=== PATIENT | female | born 1945 | race Caucasian/White ===

== ENCOUNTER 2017-03-07 20:12 | Emergency (ER) | payer BC, MEDICARE ==
[~2017-03-07] VITALS: Ht 165.1 cm; Wt 85.7 kg
[~2017-03-07 20:12] MED LIST: ALPR1TAB2 PO; LISI-334 PO
[2017-03-07 20:39] LABS: BASO # 0.1 x10^3/uL (0.0-0.2); BASO % 1 % (0-3); EOS % 0 % (0-3); HEMATOCRIT 36.7 % (36.0-47.0); HEMOGLOBIN 12.4 g/dL (12.0-15.5); LYMPH # 2.6 x10^3/uL (1.0-4.8); LYMPH % 24 % (24-48); MEAN CORPUSCULAR HEMOGLOBIN 33 pg (25-35); MEAN CORPUSCULAR HGB CONC 34 g/dL (31-37); MEAN CORPUSCULAR VOLUME 98 fL (79-100); MONO % 9 % (0-9); NEUT % 66 % (31-73); PLATELET COUNT 285 x10^3/uL (140-400); RED BLOOD COUNT 3.73 x10^6/uL (3.50-5.40); WHITE BLOOD COUNT 10.8 x10^3/uL (4.0-11.0)
[2017-03-07 20:51] LABS: CALCIUM 9.3 mg/dL (8.5-10.1); CREATININE 0.9 mg/dL (0.6-1.0); GFR 62.1; POTASSIUM 3.4 mmol/L (3.5-5.1)
[2017-03-07 20:57] LABS: ALBUMIN/GLOBULIN RATIO 1.1 (1.0-1.7); TOTAL BILIRUBIN 0.5 mg/dL (0.2-1.0); TOTAL PROTEIN 7.8 g/dL (6.4-8.2)
[2017-03-07] MEDS ORDERED: MULTIVIT INFUSN,ADULT 4,VIT K 10 ML, FOLIC ACID 1 MG, THIAMINE 100 MG in IV RINGERS,LAC... IV ONE (21:00)
--- NOTE | 2017-03-07 21:08 | RAD ---
CT HEAD INDICATION: right side numbness COMPARISON: None Available. TECHNIQUE: 5 mm contiguous axial images were obtained from the skull base to the vertex . Exposure: One or more of the following individualized dose reduction techniques were utilized for this examination: 1. Automated exposure control 2. Adjustment of the mA and/or kV according to patient size 3. Use of iterative reconstruction technique FINDINGS: Mild bilateral periventricular white matter hypodensities likely chronic small vessel ischemic disease. No evidence of acute intracranial hemorrhage. No extra-axial fluid collections. No mass effect or midline shift. Ventricular size is appropriate. Basal cisterns are patent. No fractures identified.Neal-white differentiation is preserved.Globes and orbits are within normal limits. Paranasal sinuses and mastoid air cells are clear. IMPRESSION: No acute intracranial findings. Electronically signed by: Ronnell Britton MD (03/07/2017 9:05 PM) [facility]
--- NOTE | 2017-03-07 21:25 | PHYS DOC ---
Past Medical History Past Medical History: Anxiety, Depression, Fibromyalgia, High Cholesterol, Hypertension Additional Past Medical Histor: RA, ALCOHOL DEPENDENCY, XANAX DEPENDENCY, NEUROPATHY Past Surgical History: Cholecystectomy, Other Additional Past Surgical Histo: BACK, NECK, LEFT SHOULDER, Alcohol Use: Sober Drug Use: Benzodiazepine Social History Narrative: STOPPED DRINKING AND TAKING XANAX ON 03/03/17 Adult General Chief Complaint Chief Complaint: WEAKNESS/GENERALIZED HPI HPI Patient is a 71 year old female with history of alcohol dependency, Xanax dependency, fibromyalgia rheumatoid arthritis who presents with feelings of uneasiness, generalized muscle aches, nausea and nervousness. Patient also complains of tingling in her toes. History of neuropathy. Patient was admitted to [facility] for inpatient detox 5 days ago and was released last evening. She denies chest pain, chest tightness, hallucinations and delusions. Patient has not drank alcohol or taken Xanax since discharge. She was prescribed hydroxyzine she has not taken. She denies nausea vomiting, pain. No other acute symptoms or complaints. Patient's accompanied by her son who assist with a history. Review of Systems Review of Systems Review symptoms as per history of present illness. All other review symptoms are negative. Current Medications Current Medications Current Medications Medications (Trade) Dose Ordered Sig/Leatha Start Time Stop Time Status Last Admin Dose Admin Chlordiazepoxide (Librium) 25 mg 1X ONCE 03/07/17 23:15 03/07/17 23:16 DC 03/07/17 23:13 25 MG Hydroxyzine Pamoate (Vistaril) 50 mg 1X ONCE 03/07/17 21:30 03/07/17 21:31 DC 03/07/17 21:34 50 MG Multivitamins 10 ml/Folic Acid 1 mg/Thiamine HCl 100 mg/Ringer's Solution 1,011.2 ml @ 1,000 mls/ hr 1X ONCE 03/07/17 21:00 03/07/17 22:00 DC 03/07/17 21:35 1,000 MLS/HR Allergies Allergies Allergies Coded Allergies Type Severity Reaction Last Updated Verified No Known Drug Allergies 09/27/14 No Physical Exam Physical Exam Constitutional: Well developed, well nourished, anxious appearing,. [] HENT: Normocephalic, atraumatic, bilateral external ears normal, oropharynx moist, no oral exudates, nose normal. [] Eyes: PERRLA, EOMI, conjunctiva normal, no discharge. [] Neck: Normal range of motion, no tenderness, supple, no stridor. [] Cardiovascular:Heart rate regular rhythm, no murmur [] Lungs & Thorax: Bilateral breath sounds clear to auscultation [] Abdomen: Bowel sounds normal, soft, no tenderness, no masses, no pulsatile masses. [] Skin: Warm, dry, no erythema, no rash. [] Back: No tenderness, no CVA tenderness. [] Extremities: No tenderness, no cyanosis, no clubbing, ROM intact, no edema. [] Neurologic: Alert and oriented X 3, radial nerves II through XII grossly intact , normal motor function, normal sensory function, no focal deficits noted. [] Psychologic: Affect, anxious.. [] Current Patient Data Vital Signs Vital Signs Date Time Temp Pulse Resp B/P (MAP) Pulse Ox O2 Delivery O2 Flow Rate FiO2 03/07/17 23:14 70 174/79 (110) 98 Room Air 03/07/17 20:20 98.7 20 98.7 Lab Values Laboratory Tests Test 03/07/17 20:21 03/07/17 20:24 03/07/17 21:30 Glucose (Fingerstick) 163 mg/dL (70-99) H White Blood Count 10.8 x10^3/uL (4.0-11.0) Red Blood Count 3.73 x10^6/uL (3.50-5.40) Hemoglobin 12.4 g/dL (12.0-15.5) Hematocrit 36.7 % (36.0-47.0) Mean Corpuscular Volume 98 fL (79-100) Mean Corpuscular Hemoglobin 33 pg (25-35) Mean Corpuscular Hemoglobin Concent 34 g/dL (31-37) Red Cell Distribution Width 14.0 % (11.5-14.5) Platelet Count 285 x10^3/uL (140-400) Neutrophils (%) (Auto) 66 % (31-73) Lymphocytes (%) (Auto) 24 % (24-48) Monocytes (%) (Auto) 9 % (0-9) Eosinophils (%) (Auto) 0 % (0-3) Basophils (%) (Auto) 1 % (0-3) Neutrophils # (Auto) 7.1 x10^3uL (1.8-7.7) Lymphocytes # (Auto) 2.6 x10^3/uL (1.0-4.8) Monocytes # (Auto) 0.9 x10^3/uL (0.0-1.1) Eosinophils # (Auto) 0.0 x10^3/uL (0.0-0.7) Basophils # (Auto) 0.1 x10^3/uL (0.0-0.2) Sodium Level 135 mmol/L (136-145) L Potassium Level 3.4 mmol/L (3.5-5.1) L Chloride Level 97 mmol/L (98-107) L Carbon Dioxide Level 26 mmol/L (21-32) Anion Gap 12 (6-14) Blood Urea Nitrogen 13 mg/dL (7-20) Creatinine 0.9 mg/dL (0.6-1.0) Estimated GFR (Cockcroft-Gault) 62.1 BUN/Creatinine Ratio 14 (6-20) Glucose Level 166 mg/dL (70-99) H Calcium Level 9.3 mg/dL (8.5-10.1) Magnesium Level 2.0 mg/dL (1.8-2.4) Total Bilirubin 0.5 mg/dL (0.2-1.0) Aspartate Amino Transferase (AST) 31 U/L (15-37) Alanine Aminotransferase (ALT) 63 U/L (14-59) H Alkaline Phosphatase 47 U/L (46-116) Troponin I Quantitative < 0.017 ng/mL (0.000-0.055) Total Protein 7.8 g/dL (6.4-8.2) Albumin 4.0 g/dL (3.4-5.0) Albumin/Globulin Ratio 1.1 (1.0-1.7) Thyroid Stimulating Hormone (TSH) 2.661 uIU/mL (0.358-3.74) Ethyl Alcohol Level < 10 mg/dL (0-10) Urine Collection Type Unknown Urine Color Yellow Urine Clarity Clear Urine pH 6.0 Urine Specific [place] 1.015 Urine Protein Negative mg/dL (NEG-TRACE) Urine Glucose (UA) Negative mg/dL (NEG) Urine Ketones (Stick) Negative mg/dL (NEG) Urine Blood Negative (NEG) Urine Nitrite Negative (NEG) Urine Bilirubin Negative (NEG) Urine Urobilinogen Dipstick 0.2 mg/dL (0.2 mg/dL) Urine Leukocyte Esterase Moderate (NEG) Urine RBC 0 /HPF (0-2) Urine WBC 5-10 /HPF (0-4) Urine Squamous Epithelial Cells Mod /LPF Urine Transitional Epithelial Cells Mod /LPF Urine Renal Epithelial Cells Occ /LPF Urine Bacteria 0 /HPF (0-FEW) Urine Hyaline Casts Occasional /HPF Urine Mucus Marked /LPF Urine Opiates Screen Neg (NEG) Urine Methadone Screen Neg (NEG) Urine Barbiturates Neg (NEG) Urine Phencyclidine Screen Neg (NEG) Urine Amphetamine/Methamphetamine Neg (NEG) Urine Benzodiazepines Screen Pos (NEG) Urine Cocaine Screen Neg (NEG) Urine Cannabinoids Screen Neg (NEG) Urine Ethyl Alcohol Neg (NEG) Laboratory Tests 03/07/17 20:24 Laboratory Tests 03/07/17 20:24 EKG EKG [EKG: Normal sinus rhythm, right ventricular hypertrophy, ventricular rate 73, no acute ST-T wave changes, QTC 427. Interpretation by this physician.] Radiology/Procedures Radiology/Procedures [CT head: No acute intracranial disease per radiology report] Course & Med Decision Making Course & Med Decision Making Pertinent Labs and Imaging studies reviewed. (See chart for details) [Patient given banana bag and Atarax for anxiety. Patient blood labs, EKG and imaging studies checked nonacute symptoms are consistent with anxiety. Patient has 5 days chest pain is not exhibited symptoms of delirium. However, patient symptomatically for anxiety and hypertensive consistent withdrawal. Librium given with significant improvement. I discussed with the patient and patient's son at length multiple options including admission to this facility, transfer to [facility], or discharge home with a prescription of Librium with outpatient rehabilitation. Patient and patient's son request discharge home with a prescription of Librium. I instructed them that should Renetta develop new or worsening symptoms, they should return immediately to the emergency department. Both patient and son verbalized understanding agreement with discharge plan. Dragon Disclaimer Dragon Disclaimer This electronic medical record was generated, in whole or in part, using a voice recognition dictation system. Departure Departure Impression: Primary Impression: Anxiety reaction Additional Impressions: Withdrawal from benzodiazepine Withdrawal symptoms, alcohol Disposition: 01 HOME, SELF-CARE Condition: IMPROVED Referrals: SHAYNA MABRY MD (PCP) Patient Instructions: Alcohol Withdrawal, [id number], Anxiety and Panic Attacks, [id number], Benzodiazepine Withdrawal Additional Instructions: Please follow discharge instructions provided to yesterday. Take Librium as needed for anxiety and follow-up with outpatient rehabilitation. Problem Qualifiers LYLE MALAGON DO Mar 07, 2017 21:25
[2017-03-07] MEDS ORDERED: hydrOXYzine PAMOATE 25 MG CAPSULE PO ONE (21:30)
[2017-03-07 21:53] LABS: BILIRUBIN,URINE NEGATIVE (NEG); GLUCOSE,URINE NEGATIVE (NEG); NITRITE,URINE NEGATIVE (NEG); PROTEIN,URINE NEGATIVE (NEG-TRACE); UROBILINOGEN,URINE 0.2 mg/dL (0.2 mg/dL)
[2017-03-07 22:00] LABS: BARBITURATES NEG (NEG); BENZODIAZEPINES POS (NEG); CANNABINOIDS NEG (NEG); COCAINE NEG (NEG); METHADONE NEG (NEG); OPIATES NEG (NEG); PHENCYCLIDINE NEG (NEG)
[2017-03-07 22:11] LABS: BACTERIA,URINE 0 /HPF (0-FEW); RBC,URINE 0 /HPF (0-2); SQUAMOUS EPITHELIAL CELL,UR MOD /LPF
[2017-03-07] MEDS ORDERED: chlordiazePOXIDE HCL 25 MG CAPSULE PO ONE (23:15)
[2017-03-08 00:41] VITALS: BP 168/74
--- NOTE | 2017-03-08 11:04 | EKG ---
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
== END 2017-03-08 00:52 | disposition home or self-care (01) ==
LOC: ER 20:42
DX: F41.1 Generalized anxiety disorder (principal); F13.239 Sedative, hypnotic or anxiolytic dependence with withdrawal, unspecified; F10.239 Alcohol dependence with withdrawal, unspecified; F32.9 Major depressive disorder, single episode, unspecified; M79.7 Fibromyalgia; E78.00 Pure hypercholesterolemia, unspecified; I10 Essential (primary) hypertension; M06.9 Rheumatoid arthritis, unspecified; G62.9 Polyneuropathy, unspecified; Z90.49 Acquired absence of other specified parts of digestive tract; Y90.0 Blood alcohol level of less than 20 mg/100 ml
CPT/HCPCS: 36415; 70450; 80053; 80307; 81001; 82962; 83735; 84443; 84484; 85025; 87086; 93005; 96365; 99285; G0480; Q0177; J7120; G0479

== ENCOUNTER → 2021-07-26 | Outpatient (CLI) | payer BC ==
[~2021-07-26] MED LIST changes: -LISI-334 PO; +LISI20TA18 PO; +REGADENOSON 0.4 MG/5 ML DISP.SYRIN. IV ONE
--- NOTE | 2021-07-26 12:30 | CARD ---
MR#: [id number] Date of Study: 07/26/2021 Ordering Physician: KAYLEE GOODMAN, Referring Physician: KAYLEE GOODMAN Tech: Damaris Diaz [facility] APPROVED REPORT EXAM: Two-dimensional and M-mode echocardiogram with Doppler and color Doppler. Other Information Quality : GoodHR: 58bpm Rhythm : NSR INDICATION Chest Pain RISK FACTORS Hypertension Obesity 2D DIMENSIONS RVDd3.2 (2.9-3.5cm)Left Atrium(2D)3.6 (1.6-4.0cm) IVSd1.1 (0.7-1.1cm)Aortic Root(2D)3.3 (2.0-3.7cm) LVDd4.2 (3.9-5.9cm)LVOT Diameter2.2 (1.8-2.4cm) PWd1.0 (0.7-1.1cm)LVDs2.3 (2.5-4.0cm) FS (%) 43.8 %SV58.5 ml Aortic Valve AoV Peak Arnol.141.0cm/sAoV VTI28.4cm AO Peak GR.8.0mmHgLVOT Peak Arnol.113.0cm/s AO Mean GR.3mmHgAVA (VMAX)3.11cm2 Mitral Valve MV E Yvmurmzo10.7cm/sMV DECEL [id number] MV A Wudotdoo81.8cm/sE/A Ratio1.0 Pulmonary Valve PV Peak Yvjnxlai371.7cm/s LEFT VENTRICLE The left ventricle is normal size. There is borderline concentric left ventricular hypertrophy. The l eft ventricular systolic function is normal and the ejection fraction is within normal range. LV eje ction fraction of 55 to 60%. There is normal LV segmental wall motion. The left ventricular diastolic function and filling is normal for age. RIGHT VENTRICLE The right ventricle is normal size. There is normal right ventricular wall thickness. The right ventr icular systolic function is normal. ATRIA The left atrium size is normal. The right atrium size is normal. The interatrial septum is intact wit h no evidence for an atrial septal defect or patent foramen ovale as noted on 2-D or Doppler imaging. AORTIC VALVE The aortic valve is normal in structure and function. Doppler and Color Flow revealed no significant aortic regurgitation. There is no significant aortic valvular stenosis. MITRAL VALVE The mitral valve is normal in structure and function. There is no evidence of mitral valve prolapse. There is no mitral valve stenosis. Doppler and Color Flow revealed no mitral valve regurgitation note d. TRICUSPID VALVE The tricuspid valve is normal in structure and function. Doppler and Color Flow revealed no tricuspid valve regurgitation noted. There is no tricuspid valve stenosis. PULMONIC VALVE The pulmonary valve is normal in structure and function. Doppler and Color Flow revealed no pulmonic valvular regurgitation. GREAT VESSELS The aortic root is normal in size. The ascending aorta is normal in size. The IVC is normal in size a nd collapses >50% with inspiration. PERICARDIAL EFFUSION There is no evidence of significant pericardial effusion. Critical Notification Critical Value: No <Conclusion> The left ventricle is normal size. The left ventricular systolic function is normal and the ejection fraction is within normal range. LV ejection fraction of 55 to 60%. There is normal LV segmental wall motion. There is borderline concentric left ventricular hypertrophy. Doppler and Color Flow revealed no significant aortic regurgitation. There is no significant aortic valvular stenosis. Doppler and Color Flow revealed no mitral valve regurgitation noted. Doppler and Color Flow revealed no tricuspid valve regurgitation noted. Signed by : Jay Raphael MD Electronically Approved : 07/26/2021 12:29:47
--- NOTE | 2021-07-26 12:58 | RAD ---
MR#: [id number] Date of Study: 07/26/2021 Ordering Physician: KAYLEE GOODMAN, Referring Physician: EDE JOHN Tech: RT Junito Franco) (N) APPROVED REPORT Test Type: Pharmacological Stress Nurse/Tech: Scarlett Huertas RN Test Indications: Dyspnea on exertion Cardiac History: Hypertension, Family history Medications: See Electronic Medical Record Medical History: See Electronic Medical Record Resting ECG: SR with PAC Resting Heart Rate: 68 bpm Resting Blood Pressure: 145/71mmHg Pretest Chest Pain: No chest pain Nurse/Tech Notes S1,S2 and lungs clear to auscultation. Consent: The procedure was explained to the patient in lay terms. Informed consent was witnessed. Tyson eout was entered into [employer]. History and Stress Test performed by RT Junito Avila) (N) Pharm. Details Pharmacologic stress testing was performed using 0.4mg per 5ml of regadenoson given intravenously ove r 7-10 seconds. Stress Symptoms No chest pain or symptoms. POST EXERCISE Reason for Termination: Infusion complete Target HR: No Max HR: 88 bpm 70% of Maximum Predicted HR: 124 bpm Max Blood Pressure: 159/56mmHg Blood Pressure response to exercise: Normal blood pressure response during stress. Heart Rate response to exercise: WNL Chest Pain: No. Arrhythmia: Yes. PAC ST Change: No. INTERPRETATION Stress EKG Conclusion: The resting EKG shows a sinus rhythm, mild nonspecific T wave changes and PACs . The stress EKG shows no significant changes from baseline. No EKG evidence of stress-induced ischemia. Imaging Protocol IMAGE PROTOCOL: Stress Tc-99m/rest Tc-99m 1 day Rest: Stress: Viability: Radiopharm.Tc99m NbueadvdiIg87e Sestamibi Dose10.5mCi 33mCi Duration 13min. 13min. Img Date 07/26/2021 07/26/2021 Inj-Img Jufr79msv. 60min. Rest Admin Site:IV - Right AntecubitalAdministrator:RT Austin (R)(N) Stress Admin Site: IV - Right AntecubitalAdministrator: Inderjit Bullis, SHAKE [employer]ER STRESS DATA End Diast. Vol.58.0mlLVEDV index BSA29.0ml End Syst. Vol.10.0mlLVESV index BSA5.0ml Myocardial Mass98.0gEject. Dajevyxb40.0% Stress Scores Regional WT0.00Summed WT0.00 Regional WM0.00Summed WM0.00 LV Perfusion The stress scans showed no significant defects. The rest scans showed no significant defects. Nuclear imaging shows no reversible ischemia or infarct. Wall Motion LV systolic function is normal with an ejection fraction of greater than 70%. LV Perf. Quant 17 Seg. SSS0.00 17 Seg. SRS0.00 17 Seg. SDS0.00 Stress Defect Extent (% LAD)0.00Rest Defect Extent (% LAD)0.00Rev. Defect Extent (% LAD)0.00 Stress Defect Extent (% LCX) 0.00Rest Defect Extent (% LCX)7.50Rev. Defect Extent (% LCX)0.00 Stress Defect Extent (% RCA)0.00Rest Defect Extent (% RCA)0.00Rev. Defect Extent (% RCA)0.00 Stress Defect Extent (% SAMEER)0.00Rest Defect Extent (% SAMEER)1.30Rev. Defect Extent (% SAMEER)0.00 Conclusion 1. No EKG evidence of stress-induced ischemia. 2. Nuclear imaging shows no reversible ischemia or infarct. 3. Normal left ventricular systolic function with an ejection fraction of greater than 70%. 4. Low risk Lexiscan nuclear stress test. Signed by : Jay Raphael MD Electronically Approved : 07/26/2021 12:58:19
== END ==
LOC: NM 08:31
PROVIDERS: ATTEND Internal Medicine Cardiovascular Disease
DX: I11.9 Hypertensive heart disease without heart failure (principal); R06.09 Other forms of dyspnea
CPT/HCPCS: 78452; 93017; 93306; A9500; J2785; C8929